=== PATIENT | male | born 1935 | race Caucasian/White ===

== ENCOUNTER 2017-11-18 17:20 | Inpatient (IN) | payer OTHER ==
[~2017-11-18] VITALS: Ht 170.2 cm; Wt 74.2 kg
[~2017-11-18 17:20] MED LIST: ASPI-496 PO; DOXA8TAB63 PO; ENAL5TAB PO; FENO48TA5 PO; LOVA20TA2 PO; ZINC100T PO
[2017-11-18 18:10] LABS: BASOPHILS # (AUTO) 0.01 x10^3/uL (0-0.1); BASOPHILS % (AUTO) 0 % (0-1); EOSINOPHILS # (AUTO) 0.02 x10^3/uL (0-0.4); EOSINOPHILS % (AUTO) 0 % (1-7); LYMPHOCYTES # (AUTO) 1.69 x10^3/uL (1-3.4); LYMPHOCYTES % (AUTO) 26 % (22-44); MD NO; MEAN CORPUSCULAR HEMOGLOBIN 32.1 pg (27.5-34.5); MEAN CORPUSCULAR HGB CONC 33.9 g/dL (33.2-36.2); MEAN CORPUSCULAR VOLUME 94.7 fL (81-97); MEAN PLATELET VOLUME 8.7 fL (7.4-10.4); MONOCYTES # (AUTO) 0.85 x10^3/uL (0.2-0.8); MONOCYTES % (AUTO) 13 % (2-9); NEUTROPHILS # (AUTO) 3.85 x10^3/uL (1.8-6.8); NEUTROPHILS % (AUTO) 60 % (42-75); PLATELET COUNT 256 x10^3/uL (130-400); RED BLOOD COUNT 4.21 x10^6/uL (4.38-5.82); RED CELL DISTRIBUTION WIDTH 16.8 % (9.4-14.8)
[2017-11-18 18:20] LABS: INTERNATIONAL NORMALIZED RATIO 0.99 (0.93-1.1); PROTHROMBIN TIME 10.3 Seconds (9.6-11.5)
[2017-11-18 18:22] LABS: ALANINE AMINOTRANSFERASE 39 U/L (12-78); ALBUMIN 3.4 g/dL (3.4-5.0); ANION GAP 7 mmol/L (5-15); CALCIUM 8.8 mg/dL (8.5-10.1); CHLORIDE 109 mmol/L (98-107); CREATININE 0.86 mg/dL (0.7-1.3)
[2017-11-18 18:27] LABS: ALKALINE PHOSPHATASE 64 U/L (45-117); BILIRUBIN,TOTAL 0.6 mg/dL (0.2-1.0); FREE T4 (FREE THYROXINE) 1.14 ng/dL (0.76-1.46); TOTAL PROTEIN 7.2 g/dL (6.4-8.2); TROPONIN I < 0.015 ng/mL (0.000-0.045)
[2017-11-18] MEDS ORDERED: SODIUM CHLORIDE 0.9% 1,000ML IVBOLUS ONE (19:00)
[2017-11-18] MEDS ORDERED: OMEG1CAP23 PO (19:37)
[2017-11-18] MEDS ORDERED: CARV6.252 PO (19:37)
[2017-11-18] MEDS ORDERED: GELA650C4 PO (19:37)
[2017-11-18] MEDS ORDERED: ATOR-2 PO (19:37)
[2017-11-18] MEDS ORDERED: MULT-658 PO (19:37)
[2017-11-18] MEDS ORDERED: TAMS0.4C2 PO (19:37)
[2017-11-18] MEDS ORDERED: FLAX1OIL PO (19:37)
[2017-11-18] MEDS ORDERED: SODIUM CHLORIDE FLUSH 10ML SYR IVF PRN (20:00)
[2017-11-18 20:26] VITALS: BP 159/67
[2017-11-18] MEDS ORDERED: SODIUM CHLORIDE 0.9% 1,000 ML IV SCH (21:41)
[2017-11-18] MEDS ORDERED: hydrALAzine 20 MG/ML, 1ML IVPush PRN (22:00)
[2017-11-18] MEDS ORDERED: BISACODYL 10 MG SUPP PR PRN (22:00)
[2017-11-18] MEDS ORDERED: DOCUSATE 100 MG CAPSULE PO PRN (22:00)
[2017-11-18] MEDS ORDERED: POLYETHYLENE GLYCOL 17 GM PACKET PO PRN (22:00)
[2017-11-18] MEDS ORDERED: ONDANSETRON ODT 4 MG PO PRN (22:00)
[2017-11-18] MEDS ORDERED: ACETAMINOPHEN 325 MG TABLET PO PRN (22:00)
[2017-11-18 22:27] LABS: HEMOGLOBIN A1C 5.3 % (4.2-6.3)
[2017-11-18] MEDS: ATORVASTATIN 40 MG TABLET PO SCH (22:47)
[2017-11-18] MEDS: CARVEDILOL 6.25 MG TABLET PO SCH (22:47)
[2017-11-18] MEDS: HEPARIN 5,000 UNITS/ML, 1ML SQ SCH (22:51)
[2017-11-18 23:05] LABS: MICROSCOPIC NOT IND
[2017-11-18 23:07] LABS: CULTURE INDICATED? NO
[2017-11-19 01:07] VITALS: BP 164/74
[2017-11-19 05:13] LABS: BASOPHILS # (AUTO) 0.01 x10^3/uL (0-0.1); BASOPHILS % (AUTO) 0 % (0-1); EOSINOPHILS # (AUTO) 0.03 x10^3/uL (0-0.4); EOSINOPHILS % (AUTO) 1 % (1-7); LYMPHOCYTES # (AUTO) 2.17 x10^3/uL (1-3.4); LYMPHOCYTES % (AUTO) 35 % (22-44); MD NO; MEAN CORPUSCULAR HGB CONC 33.8 g/dL (33.2-36.2); MEAN CORPUSCULAR VOLUME 94.6 fL (81-97); MEAN PLATELET VOLUME 8.8 fL (7.4-10.4); MONOCYTES # (AUTO) 0.74 x10^3/uL (0.2-0.8); MONOCYTES % (AUTO) 12 % (2-9); NEUTROPHILS # (AUTO) 3.21 x10^3/uL (1.8-6.8); NEUTROPHILS % (AUTO) 52 % (42-75); PLATELET COUNT 227 x10^3/uL (130-400); RED BLOOD COUNT 3.73 x10^6/uL (4.38-5.82); RED CELL DISTRIBUTION WIDTH 16.6 % (9.4-14.8)
[2017-11-19 05:15] LABS: ALBUMIN 2.9 g/dL (3.4-5.0); ANION GAP 9 mmol/L (5-15); CALCIUM 8.3 mg/dL (8.5-10.1); CHLORIDE 115 mmol/L (98-107)
[2017-11-19 05:18] LABS: ALANINE AMINOTRANSFERASE 32 U/L (12-78); ALKALINE PHOSPHATASE 59 U/L (45-117); BILIRUBIN,TOTAL 0.8 mg/dL (0.2-1.0); CHOL/HDL RATIO 4.9; CHOLESTEROL, TOTAL 131 mg/dL (140-239); HDL CHOL % 21 % (26-37); HDL CHOLESTEROL (DIRECT) 27 mg/dL (40-60); LDL CHOLESTEROL,CALCULATED 70 mg/dL (54-169); LDL/HDL RATIO 2.6 (0.5-3.0); TOTAL PROTEIN 6.2 g/dL (6.4-8.2); TRIGLYCERIDES 170 mg/dL (50-200); VLDL CHOLESTEROL 34 mg/dL (0-25)
[2017-11-19] MEDS: HEPARIN 5,000 UNITS/ML, 1ML SQ SCH ×3 (07:00→20:21)
[2017-11-19 07:50] VITALS: BP 139/63
[2017-11-19] MEDS: GELATIN 1300 MG HOMEMEDPO SCH (09:00)
[2017-11-19] MEDS: MULTIVITAMIN 1 TABLET PO SCH (09:49)
[2017-11-19] MEDS: TAMSULOSIN 0.4 MG CAP.ER.24H PO SCH (09:50)
[2017-11-19] MEDS: OMEGA-3/FISH OIL CAPSULE PO SCH (09:50)
[2017-11-19] MEDS: CARVEDILOL 6.25 MG TABLET PO SCH (09:50)
[2017-11-19] MEDS: ENALAPRIL 5MG TABLET PO SCH (09:50)
[2017-11-19] MEDS: ASPIRIN 81 MG TABLET EC PO SCH (09:50)
[2017-11-19] MEDS: DOXAZOSIN 2MG TABLET PO SCH (09:56)
[2017-11-19] MEDS ORDERED: QUETIAPINE 25MG TABLET PO PRN (11:00)
[2017-11-19 13:33] VITALS: BP 127/70
[2017-11-19 19:40] VITALS: BP 102/65
[2017-11-19] MEDS: ATORVASTATIN 40 MG TABLET PO SCH (20:21)
[2017-11-20 02:07] VITALS: BP 146/70
[2017-11-20 08:05] VITALS: BP 123/77
[2017-11-20 08:25] VITALS: BP 146/62
[2017-11-20] MEDS: ENALAPRIL 5MG TABLET PO SCH (08:55)
[2017-11-20] MEDS: MULTIVITAMIN 1 TABLET PO SCH (08:56)
[2017-11-20] MEDS: TAMSULOSIN 0.4 MG CAP.ER.24H PO SCH (08:56)
[2017-11-20] MEDS: ASPIRIN 81 MG TABLET EC PO SCH (08:56)
[2017-11-20] MEDS: OMEGA-3/FISH OIL CAPSULE PO SCH (09:00)
[2017-11-20] MEDS: DOXAZOSIN 2MG TABLET PO SCH (09:00)
[2017-11-20] MEDS: HEPARIN 5,000 UNITS/ML, 1ML SQ SCH ×2 (09:00→16:17)
[2017-11-20] MEDS: GELATIN 1300 MG HOMEMEDPO SCH (09:00)
[2017-11-20] MEDS ORDERED: ZIPRASIDONE 20 MG INJ IM ONE (10:31)
[2017-11-20] MEDS ORDERED: HALOPERIDOL 5 MG/ML ONE (10:32)
[2017-11-20] MEDS ORDERED: HALOPERIDOL 5 MG/ML IM ONE (13:00)
[2017-11-20] MEDS ORDERED: HALOPERIDOL 5 MG/ML IV ONE (13:00)
[2017-11-20 14:27] VITALS: BP 123/66
== END 2017-11-20 18:20 | disposition home or self-care (01) | DRG 918 ==
LOC: ED 18:52 → EDIP 19:41 → 5SO 20:34
PROVIDERS: ADMIT Internal Medicine; ATTEND Hospitalist
DX: T44.7X1A Poisoning by beta-adrenoreceptor antagonists, accidental (unintentional), initial encounter (principal); I48.91 Unspecified atrial fibrillation; F03.90 Unspecified dementia, unspecified severity, without behavioral disturbance, psychotic disturbance, mood disturbance, and anxiety; E78.5 Hyperlipidemia, unspecified; R55 Syncope and collapse; M25.511 Pain in right shoulder; I10 Essential (primary) hypertension; I49.3 Ventricular premature depolarization; N40.0 Benign prostatic hyperplasia without lower urinary tract symptoms; R29.6 Repeated falls; Z85.46 Personal history of malignant neoplasm of prostate; Z92.3 Personal history of irradiation; Z82.0 Family history of epilepsy and other diseases of the nervous system
CPT/HCPCS: 36415; 70551; 71045; 80053; 80061; 81003; 82306; 82607; 83036; 83735; 84439; 84443; 84484; 85025; 85610; 85730; 93005; 93306; 93880; 96360; J1644; 92523-GN; J1630; J7030